=== PATIENT | female | born 1965 | race American Indian/Alaskan Native ===

== ENCOUNTER 2019-04-18 17:05 | Emergency (ER) | payer SELFPAY ==
--- NOTE | 2019-04-18 17:27 | Event Note ---
ED Screening Note ED Screening Note: sp fall from bed in February since then her left arm/shoulder hurts has difficulty raising no cp or sob otc meds not working pmh none psh none rx none mom a/w dad dec ca This initial assessment/diagnostic orders/clinical plan/treatment(s) is/are subject to change based on patients health status, clinical progression and re- assessment by fellow clinical providers in the ED. Further treatment and workup at subsequent clinical providers discretion. Patient/guardian urged not to elope from the ED as their condition may be serious if not clinically assessed and managed. Initial orders include: xr
[2019-04-18] MEDS ORDERED: IBUPROFEN PO ONE (17:32)
--- NOTE | 2019-04-18 18:21 | XRay Report ---
LEFT SHOULDER 3 VIEWS INDICATION: pain l shoulder. COMPARISON: No relevant prior imaging study available. FINDINGS: There is a minimally displaced fracture through the greater tuberosity of the proximal left humerus. No additional fractures are seen. There is mild acromioclavicular degenerative change. IMPRESSION: 1. Mildly displaced greater tuberosity proximal left humerus fracture. Signer Name: Ray Tripathi MD Signed: 04/18/2019 6:17 PM Workstation Name: [id number]
--- NOTE | 2019-04-18 23:15 | Emergency Department Report ---
Upper Extremity - HPI Chief Complaint: Extremity Problem,Nontraumatic Stated Complaint: (L) ARM PAIN Time Seen by Provider: 04/18/19 17:25 Upper Extremity: Left Shoulder, Left Arm Occurred When: 3 Days Mechanism: Fall Symptoms: Yes Pain with Movement, Yes Limited Range of Movement, No Deformity, No Numbness, No Weakness, No Laceration or Abrasion ED Review of Systems ROS: Stated complaint: (L) ARM PAIN Other details as noted in HPI Comment: All other systems reviewed and negative ED Past Medical Hx - Social History Smoking Status: Current Every Day Smoker Substance Use Type: None - Medications Home Medications: Home Medications Medication Instructions Recorded Confirmed Last Taken Type Acetaminophen/Codeine [Tylenol 1 tab PO Q6H PRN #14 tab 04/18/19 Unknown Rx /Codeine # 3 tab] Ketorolac [Toradol] 10 mg PO Q6H PRN #14 tablet 04/18/19 Unknown Rx Upper Extremity Exam - Exam General: Vital signs noted. No distress. Alert and acting appropriately. ED Course Vital Signs 04/18/19 17:25 Temperature 99.1 F Pulse Rate 89 Respiratory 20 Rate Blood Pressure 151/80 O2 Sat by Pulse 97 Oximetry ED Medical Decision Making - Medical Decision Making 54-year-old female with severe greater tuberosity fractures. Left shoulder was placed in a sling and Critical care attestation.: If time is entered above; I have spent that time in minutes in the direct care of this critically ill patient, excluding procedure time. ED Disposition Clinical Impression: Greater tuberosity of humerus fracture Disposition: DC-01 TO HOME OR SELFCARE Is pt being admited?: No Does the pt Need Aspirin: No Condition: Stable Instructions: Arm Fracture in Adults (ED) Prescriptions: Ketorolac [Toradol] 10 mg PO Q6H PRN #14 tablet PRN Reason: Pain Acetaminophen/Codeine [Tylenol /Codeine # 3 tab] 1 tab PO Q6H PRN #14 tab PRN Reason: Pain , Severe (7-10) Referrals: WALLY MILLER MD [Staff Physician] - 3-5 Days
[2019-04-19 04:20] VITALS: BP 124/68
== END 2019-04-18 23:00 | disposition home or self-care (01) ==
LOC: ED 17:05
DX: S42.252A Displaced fracture of greater tuberosity of left humerus, initial encounter for closed fracture (principal); F17.200 Nicotine dependence, unspecified, uncomplicated; X58.XXXA Exposure to other specified factors, initial encounter; Y93.89 Activity, other specified; Y92.89 Other specified places as the place of occurrence of the external cause; Y99.8 Other external cause status